=== PATIENT | female | born 1995 | race Caucasian/White ===

== ENCOUNTER 2017-06-04 18:06 | Emergency (ER) | payer MEDICAID ==
[~2017-06-04] VITALS: Ht 177.8 cm; Wt 56.7 kg
[2017-06-04 18:11] VITALS: BP 120/70
[2017-06-04] MEDS ORDERED: IBUPROFEN 600 MG TABLET PO ONE (18:37)
[2017-06-04] MEDS: IBUPROFEN 600 MG TABLET PO ONE (18:45)
== END 2017-06-04 20:10 | disposition home or self-care (01) ==
LOC: ER 18:08
DX: S80.02XA Contusion of left knee, initial encounter (principal); V12.4XXA Pedal cycle driver injured in collision with two- or three-wheeled motor vehicle in traffic accident, initial encounter; Y93.55 Activity, bike riding; Y92.413 State road as the place of occurrence of the external cause; Y99.8 Other external cause status
CPT/HCPCS: 73564-TC; A4606; Z7610